=== PATIENT | female | born 1935 | race Caucasian/White ===

== ENCOUNTER 2018-06-01 06:45 | Inpatient (IN) | payer OTHER ==
[2018-06-01 07:22] VITALS: TEMP 98; BMI 28.3
--- NOTE | 2018-06-01 07:46 | PDOC ---
History of Present Illness <Michael Kumari - Last Filed: 06/01/18 16:45> - General History Source: Patient Exam Limitations: No Limitations - History of Present Illness Initial Comments: 06/01/18 07:44 83y F hx of arhtritis, bladder ca, macular degneration, depression, presents with nausea/back pain/chest pain/left arm pain. Pt was at a diner on monday when she started feeling diffuse back pain, associated n/v, diarrhea that resovled after a day. The back pain typically is intermittent, stabbing in nature lasting for approx 10 seconds at the worse before gradually resolving. Usually comes ta night. pt also endores some pain to her L chest under her breast and some palptatations. pt notes these symptoms are not exertional. not associated with food intake (though she has had decreased appetitie recently). no associated fver/chlls, cough, hemoptysis, leg swelling, claf pain, numbness/ tingling or weakness. no recent trauma/falls/injuries. PMD: Dr. Vera <Ever Patel - Last Filed: 06/02/18 15:12> - General Chief Complaint: Pain, Acute Stated Complaint: BACK/LT SHOULDER PAIN Time Seen by Provider: 06/01/18 07:22 Past History <Michael Kumari - Last Filed: 06/01/18 16:45> - Past Medical History Anemia: No Asthma: No Cancer: Yes (UPPER LIP; BLADDER CA 2011) Cardiac Disorders: No CVA: No COPD: No CHF: No Dementia: No Diabetes: No GI Disorders: No Disorders: No HTN: Yes Hypercholesterolemia: No Liver Disease: No Seizures: No Thyroid Disease: No - Surgical History Orthopedic Surgery: Yes (LEFT WRIST;LEFT ELBOW; ARTHRO L KNEE;TKR - LEFT) - Immunization History Immunization Up to Date: Yes - Suicide/Smoking/Psychosocial Hx Smoking Status: Yes Smoking History: Never smoked Have you smoked in the past 12 months: No Number of Cigarettes Smoked Daily: 24 Information on smoking cessation initiated: No Hx Alcohol Use: No Drug/Substance Use Hx: No Substance Use Type: None Hx Substance Use Treatment: No <Ever Patel - Last Filed: 06/02/18 15:12> - Past Medical History Allergies/Adverse Reactions: Allergies Allergy/AdvReac Type Severity Reaction Status Date / Time No Known Drug Allergies Allergy Verified 04/14/15 12:58 Home Medications: Ambulatory Orders Sertraline HCl [Zoloft -] 25 mg PO DAILY 10/01/13 Calcium Carbonate/Vitamin D3 [Calcium 600-Vit D3 200 Tablet] 1 each PO BID #0 tablet 10/02/13 Enalapril Maleate [Vasotec -] 20 mg PO DAILY 10/15/14 Aspirin [ASA -] 81 mg PO DAILY 02/01/15 Ciprofloxacin [Cipro (Restricted To Id)] 500 mg PO Q12H 04/14/15 Review of Systems - Review of Systems Able to Perform ROS?: Yes Comments:: 06/01/18 09:04 Constitutional - no reported Fever, Chills, HEENT: no reported vision changes, sore throat Respiratory: no reported cough, sob, hemoptysis Cardiac: +chest pain, palpitations, no reported light headedness, leg swelling Abd/GI: no reported abd pain, nausea, vomiting, blood per rectum, melena, diarrhea : no reported dysuria, frequency, discharge Musculskelatal - +back pain, no reported joint swelling skin - no reported bruising, erythema, rash neurological: no reported headache, numbness, focal weakness, tingling, ataxia, hematologic: no reported easy bruising, easy bleeding <Ever Patel - Last Filed: 06/02/18 15:12> *Physical Exam - Vital Signs Last Vital Signs Temp Pulse Resp BP Pulse Ox 98.0 F 78 16 115/79 97 06/01/18 07:00 06/01/18 07:00 06/01/18 07:00 06/01/18 07:00 06/01/18 08:30 <Michael Kumari - Last Filed: 06/01/18 16:45> - Vital Signs Last Vital Signs Temp Pulse Resp BP Pulse Ox 98.0 F 78 16 115/79 100 06/01/18 07:00 06/01/18 07:00 06/01/18 07:00 06/01/18 07:00 06/01/18 07:00 - Physical Exam Comments: 06/01/18 09:05 GENERAL: The patient is awake, alert, and fully oriented, Nontoxic - in no acute distress. HEAD: Normocephalic, atraumatic. EYES: extraocular movements intact, sclera anicteric, conjunctiva clear. ENT: Normal voice, Moist mucous membranes. NECK: Normal range of motion, supple LUNGS: Breath sounds equal, clear to auscultation bilaterally. No wheezes, no rhonchi, no rales. HEART: Regular rate and rhythm, normal S1 and S2 without murmur, rub or gallop. ABDOMEN: Soft, nontender, No guarding, no rebound. . No CVA tenderness EXTREMITIES: Normal range of motion, no edema. Neg homans sign, no calf tenderness NEUROLOGICAL: No facial assymetry, Normal speech, PSYCH: Normal mood, normal affect. SKIN: Warm, Dry, normal turgor, <Ever Patel - Last Filed: 06/02/18 15:12> Moderate Sedation - Procedure Monitoring Vital Signs: Procedure Monitoring Vital Signs Temperature 98.0 F 06/01/18 07:00 Pulse Rate 78 06/01/18 07:00 Respiratory Rate 16 06/01/18 07:00 Blood Pressure 115/79 06/01/18 07:00 O2 Sat by Pulse Oximetry (%) 97 06/01/18 08:30 <Michael Kumari - Last Filed: 06/01/18 16:45> - Procedure Monitoring Vital Signs: Procedure Monitoring Vital Signs Temperature 98.0 F 06/01/18 07:00 Pulse Rate 78 06/01/18 07:00 Respiratory Rate 16 06/01/18 07:00 Blood Pressure 115/79 06/01/18 07:00 O2 Sat by Pulse Oximetry (%) 100 06/01/18 07:00 <Ever Patel - Last Filed: 06/02/18 15:12> Heart Score/ECG Review - ECG Impressions Comment:: 06/01/18 09:05 Twelve-lead EKG was performed and reviewed by me. Rate of 143 Abnormal R wave progression No ST changes suggestive of acute ischemia Impression: SVT Repeat EKG performed at 9:01 There is normal sinus rhythm rate of 101 Abnormal R wave progression Impression: sinus tachycardia <Ever Patel - Last Filed: 06/02/18 15:12> ED Treatment Course - LABORATORY CBC & Chemistry Diagram: 06/01/18 08:45 06/01/18 08:45 - ADDITIONAL ORDERS Additional order review: Laboratory Results 06/01/18 06/01/18 08:45 08:45 Sodium 135 L Potassium 4.8 Chloride 97 L Carbon Dioxide 27 Anion Gap 11 BUN 23 H Creatinine 0.6 Creat Clearance w eGFR > 60 Random Glucose 110 H Calcium 9.5 Total Bilirubin 0.7 AST 14 L ALT 36 Alkaline Phosphatase 108 Creatine Kinase 34 Troponin I < 0.02 Total Protein 7.0 Albumin 3.7 Lipase 103 06/01/18 08:45 RBC 5.35 H MCV 81.1 MCHC 31.7 L RDW 15.7 H MPV 9.2 Neutrophils % 84.8 H Lymphocytes % 6.9 L D Monocytes % 7.8 Eosinophils % 0.2 D Basophils % 0.3 - Medications Given in the ED: ED Medications Discontinued Medications Generic Name Dose Route Start Last Admin Trade Name Freq PRN Reason Stop Dose Admin Azithromycin 500 mg/ Dextrose 250 mls @ 250 mls/hr 06/01/18 10:15 06/01/18 12 :12 IVPB 06/01/18 11:14 250 mls/hr ONCE ONE Administration Ceftriaxone Sodium 1 gm/ 50 mls @ 100 mls/hr 06/01/18 11:30 06/01/18 11:53 Dextrose IVPB 06/01/18 11:59 100 mls/hr ONCE ONE Administration Ibuprofen 400 mg 06/01/18 13:05 06/01/18 13:19 Motrin - PO 06/01/18 13:06 400 mg ONCE ONE Administration <Michael Kumari - Last Filed: 06/01/18 16:45> - LABORATORY CBC & Chemistry Diagram: 06/01/18 08:45 06/01/18 08:45 <Ever Patel - Last Filed: 06/02/18 15:12> Medical Decision Making - Medical Decision Making 3:40pm Call placed to [facility] transfer center, case was discussed with Dr. Blanca, cardiothoracic surgeon. 16:34 Call placed to [facility] for ETA and update, made aware patient will be going to ER. 16:45 Call from [facility] transfer center made aware ETA is 5:45pm. <Michael Kumari - Last Filed: 06/01/18 16:45> - Critical Care Time Total Critical Care Time (minutes): 35 Critical Care Statement: The care of this patient involved high complexity decision making to prevent further life threatening deterioration of the patient 's condition and/or to evaluate & treat vital organ system(s) failure or risk of failure. - Medical Decision Making 06/01/18 08:51 ddx for her symptoms inclues but not limited to acs, consider dissectoin/PE however unlikely as sypmtoms intermittent lasting approx 10 sec at a time and with normal bp and symmetric radial pulses, possibly arrythemia, pancreatitis, anemia, metabolic deragnement will ck cxr, ekg, labs, ua 06/01/18 09:03 original ekg noted for SVT with rate of 143 pt was placed on a monitor and svt spontaneously resolved repeat ekg owtih HR of 101 06/01/18 10:15 LABS NOTED FOR MILd leukocytosis w/ left shift cxr noted for L sided atelextasis/effusion, pna vs atelectasis román lobtain CT chest to further evlauate will write abx case dw dr. jass blue with admission for further management Stable for telemetry admission Case discussed in detail with admitting physician including history, physical exam and ancillary studies. Admitting physician has assumed care for the patient, will follow all pending diagnostics and will complete the evaluation and treatment. 06/01/18 15:16 ct chest noted for aortic dissection will notify dr. vera and dr. carmen tabares 06/01/18 16:51 repeat bp 192/124 - increased esmolol to 150mcg, 06/02/18 15:12 <Ever Patel - Last Filed: 06/02/18 15:12> *DC/Admit/Observation/Transfer - Attestations Scribe Attestion: 06/01/18 16:35 Documentation prepared by Michael Kumari, acting as medical planner for Ever Patel MD. <Michael Kumari - Last Filed: 06/01/18 16:45> - Discharge Dispostion Decision to Admit order: Yes <Ever Patel - Last Filed: 06/02/18 15:12> Diagnosis at time of Disposition: SVT (supraventricular tachycardia) Chest pain Qualifiers: Chest pain type: chest pain on breathing Qualified Code(s): R07.1 - Chest pain on breathing Pneumonia Qualifiers: Pneumonia type: due to unspecified organism Laterality: left Lung location: unspecified part of lung Qualified Code(s): J18.9 - Pneumonia, unspecified organism Aortic dissection Qualifiers: Aortic location: thoracic aorta Qualified Code(s): I71.01 - Dissection of thoracic aorta - Discharge Dispostion Disposition: TRANSFER ACUTE CARE/OTHER HOSP Condition at time of disposition: Critical
[2018-06-01 09:38] LABS: BASO % 0.3 % (0-2.0); EOS % 0.2 % (0-4.5); HEMATOCRIT 43.4 % (32.4-45.2); HEMOGLOBIN 13.8 GM/dL (10.7-15.3); LYMPH % 6.9 % (8-40); MCH 25.7 pg (25.7-33.7); MCHC 31.7 g/dl (32.0-36.0); MEAN CELL VOLUME 81.1 fl (80-96); MEAN PLT VOLUME 9.2 fl (7.5-11.1); MONO % 7.8 % (3.8-10.2); NEUT % 84.8 % (42.8-82.8); PLATELET COUNT 335 K/MM3 (134-434); RBC 5.35 M/mm3 (3.60-5.2); RDW 15.7 % (11.6-15.6); WHITE BLOOD COUNT 12.4 K/mm3 (4.0-10.0)
[2018-06-01 10:05] LABS: ALBUMIN 3.7 g/dl (3.4-5.0); ALK PHOS 108 U/L (45-117); ANION GAP 11 MMOL/L (8-16); BILIRUBIN,TOTAL 0.7 mg/dL (0.2-1); BLOOD UREA NITROGEN 23 mg/dL (7-18); CALCIUM 9.5 mg/dL (8.5-10.1); CHLORIDE 97 mmol/L (98-107); CO2 27 mmol/L (21-32); CREATININE 0.6 mg/dL (0.55-1.3); GLUCOSE,RANDOM 110 mg/dL (74-106); POTASSIUM 4.8 mmol/L (3.5-5.1); SGOT/AST 14 U/L (15-37); SGPT/ALT 36 U/L (13-61); SODIUM 135 mmol/L (136-145)
[2018-06-01] MEDS ORDERED: AZITHROMYCIN IVPB 500 MG in DEXTROSE 5%-WATER - 250 ML IVPB ONE (10:15)
[2018-06-01] MEDS ORDERED: CEFTRIAXONE 1 GM in DEXTROSE 5%-WATER - 50 ML IVPB ONE ×2 (10:15→11:30)
--- NOTE | 2018-06-01 10:47 | HP ---
Admitting History and Physical - Primary Care Physician PCP: Shyann Vera S - Admission Chief Complaint: back and chest pain History of Present Illness: 83y F hx of arhtritis, bladder ca, macular degneration, depression, presents with nausea/back pain/chest pain/left arm pain. Pt was at a diner on monday when she started feeling diffuse back pain, associated n/v, diarrhea that resolved after a day. The back pain typically is intermittent, stabbing in nature lasting for approx 10 seconds at the worse before gradually resolving. Usually comes at night. pt also c/o some pain to her L chest under her breast and some palpitations. pt notes these symptoms are not exertional. not associated with food intake (though she has had decreased appetite recently). no associated fever/chills, cough, hemoptysis, leg swelling, claf pain, numbness /tingling or weakness. no recent trauma/falls/injuries. History Source: Patient Limitations to Obtaining History: No Limitations - Past Medical History Cardiovascular: Yes: CAD, HTN, Hyperlipdemia Renal/: Yes: Cancer Musculoskeletal: Yes: Osteoarthritis - Smoking History Smoking history: Never smoked Have you smoked in the past 12 months: No Aproximately how many cigarettes per day: 24 - Alcohol/Substance Use Hx Alcohol Use: No History of Substance Use: reports: None - Social History Usual Living Arrangement: Yes: Alone ADL: Independent History of Recent Travel: No Home Medications - Allergies Allergies/Adverse Reactions: Allergies Allergy/AdvReac Type Severity Reaction Status Date / Time No Known Drug Allergies Allergy Verified 04/14/15 12:58 - Home Medications Home Medications: Ambulatory Orders Sertraline HCl [Zoloft -] 25 mg PO DAILY 10/01/13 Calcium Carbonate/Vitamin D3 [Calcium 600-Vit D3 200 Tablet] 1 each PO BID #0 tablet 10/02/13 Enalapril Maleate [Vasotec -] 20 mg PO DAILY 10/15/14 Aspirin [ASA -] 81 mg PO DAILY 02/01/15 Ciprofloxacin [Cipro (Restricted To Id)] 500 mg PO Q12H 04/14/15 Family Disease History - Family Disease History Family History: Unremarkable Review of Systems - Review of Systems Constitutional: denies: Chills, Fever Eyes: denies: Blind Spots, Blurred Vision HENT: denies: Difficult Swallowing, Epistaxis Neck: denies: Stiffness, Tenderness Cardiovascular: reports: Chest Pain, Palpitations. denies: Shortness of Breath Respiratory: denies: Cough, SOB Gastrointestinal: denies: Abdominal Pain, Constipation, Diarrhea, Vomiting Genitourinary: denies: Dysuria, Flank Pain Musculoskeletal: reports: Joint Pain (shoulders). denies: Back Pain, Joint Swelling Neurological: denies: Change in LOC, Change in Speech, Confusion, Dizziness Hematology/Lymphatic: denies: Easily Bruised, Excessive Bleeding, Swollen Glands Psychiatric: denies: Altered Sleep Pattern, Anxiety, Depression Physical Examination Vital Signs: Vital Signs Temperature 98.0 F 06/01/18 07:00 Pulse Rate 78 06/01/18 07:00 Respiratory Rate 16 06/01/18 07:00 Blood Pressure 115/79 06/01/18 07:00 O2 Sat by Pulse Oximetry (%) 100 06/01/18 07:00 Constitutional: Yes: No Distress, Calm Eyes: Yes: Conjunctiva Clear HENT: Yes: Atraumatic Neck: Yes: Supple Cardiovascular: Yes: Regular Rate and Rhythm Respiratory: Yes: CTA Bilaterally Gastrointestinal: Yes: Soft. No: Distention Renal/: No: CVA Tenderness - Left, CVA Tenderness - Right, Hematuria Musculoskeletal: No: Joint Stiffness, Joint Swelling Extremities: No: Cold, Cool, Cyanosis Edema: No Integumentary: No: Rash, Venous Stasis Changes Neurological: Yes: WNL, Alert, Oriented ...Motor Strength: WNL Psychiatric: Yes: WNL, Alert, Oriented. No: Agitated, Suicidal Ideation Labs: CBC, BMP 06/01/18 08:45 06/01/18 08:45 Imaging - Results Chest X-ray: Report Reviewed EKG: Report Reviewed Other: Report Reviewed Assessment/Plan 83y F hx of arhtritis, bladder ca, macular degneration, depression, presents with nausea, vomiting/back pain/chest pain/left arm pain. EKG in ER c/w SVT; labs noted; CXR possible L sided infiltrates ?PNA?d/w ER dr PATRICK in ER admit to telemetry cardiology eval, CE x [address] in ER further /u per cardio IV antibiotics for possible PNA f/u labs d/w pt and staff
[2018-06-01] MEDS ORDERED: CEFTRIAXONE 1 GM/50 ML BAG ONE (11:28)
--- NOTE | 2018-06-01 11:45 | EKG ---
Test Reason : Blood Pressure : / mmHG Vent. Rate : 143 BPM Atrial Rate : 079 BPM P-R Int : 000 ms QRS Dur : 082 ms QT Int : 320 ms P-R-T Axes : 000 -02 024 degrees QTc Int : 493 ms SUPRAVENTRICULAR TACHYCARDIA MODERATE VOLTAGE CRITERIA FOR LVH, MAY BE NORMAL VARIANT CANNOT RULE OUT SEPTAL INFARCT (CITED ON OR BEFORE 01-OCT-2013) ABNORMAL ECG WHEN COMPARED WITH ECG OF 01-FEB-2015 00:34, VENT. RATE HAS INCREASED BY 59 BPM Confirmed by CHRISTINA MORIN, AZEEM ([id number]) on 06/01/2018 11:45:31 AM Referred By: Confirmed By:AZEEM VASQUEZ MD
[2018-06-01] MEDS ORDERED: AZITHROMYCIN IVPB 500 MG/250 ML BAG IVPB ONE (11:59)
[2018-06-01] MEDS ORDERED: IBUPROFEN 400 MG TABLET (FP) PO ONE ×2 (13:05→13:16)
--- NOTE | 2018-06-01 13:16 | CON.CARD ---
Consult Consult Specialty:: Cardiology Referred by:: Shyann Vera Reason for Consultation:: PSVT - History of Present Illness Chief Complaint: Acute on chronic back pain History of Present Illness: 83 yo female h/o hypertensive heart disease, CAD, hyperlipidemia, DJD presents for acute on chronic back pain, ambulates with cane assistance. She was noted to be in SVT 143 with spontaneous conversion to NSR, she reports periodic palpitations, but denies chest pain, dyspnea, near or true syncope, orthopnea, PND or LE edema. - History Source History Provided By: Patient Limitations to Obtaining History: No Limitations - Past Medical History Cardio/Vascular: Yes: CAD, HTN, Hyperlipdemia Renal/: Yes: Cancer Musculoskeletal: Yes: Osteoarthritis - Alcohol/Substance Use Hx Alcohol Use: No History of Substance Use: reports: None - Smoking History Smoking history: Never smoked Have you smoked in the past 12 months: No Aproximately how many cigarettes per day: 24 - Social History ADL: Independent History of Recent Travel: No Home Medications - Allergies Allergies/Adverse Reactions: Allergies Allergy/AdvReac Type Severity Reaction Status Date / Time No Known Drug Allergies Allergy Verified 04/14/15 12:58 - Home Medications Home Medications: Ambulatory Orders Sertraline HCl [Zoloft -] 25 mg PO DAILY 10/01/13 Calcium Carbonate/Vitamin D3 [Calcium 600-Vit D3 200 Tablet] 1 each PO BID #0 tablet 10/02/13 Enalapril Maleate [Vasotec -] 20 mg PO DAILY 10/15/14 Aspirin [ASA -] 81 mg PO DAILY 02/01/15 Ciprofloxacin [Cipro (Restricted To Id)] 500 mg PO Q12H 04/14/15 Review of Systems - Review of Systems Musculoskeletal: reports: Back Pain Vital Signs: Vital Signs Temperature 98.0 F 06/01/18 07:00 Pulse Rate 78 06/01/18 07:00 Respiratory Rate 16 06/01/18 07:00 Blood Pressure 115/79 06/01/18 07:00 O2 Sat by Pulse Oximetry (%) 97 06/01/18 08:30 Constitutional: Yes: No Distress, Calm Neck: Yes: Supple Respiratory: Yes: Regular, CTA Bilaterally Gastrointestinal: Yes: Normal Bowel Sounds, Soft Cardiovascular: Yes: Regular Rate and Rhythm JVD: No Carotid Bruit: No Heart Sounds: Yes: S1, S2 Murmur: Yes: Systolic Murmur, Grade 1 Edema: No - Other Data Labs, Other Data: CBC, BMP 06/01/18 08:45 06/01/18 08:45 Troponin, BNP 06/01/18 08:45 Troponin I < 0.02 Troponin, BNP 06/01/18 08:45 Troponin I < 0.02 SVT !43->NSR 101 LVH Imaging - Results Chest X-ray: Report Reviewed (Left base ATX) Problem List - Problems (1) Hypertensive heart disease Code(s): I11.9 - HYPERTENSIVE HEART DISEASE WITHOUT HEART FAILURE Qualifiers: Heart failure presence: without heart failure Qualified Code(s): I11.9 - Hypertensive heart disease without heart failure (2) SVT (supraventricular tachycardia) Code(s): I47.1 - SUPRAVENTRICULAR TACHYCARDIA (3) Back pain Code(s): M54.9 - DORSALGIA, UNSPECIFIED Qualifiers: Back pain location: back pain in unspecified location Chronicity: unspecified (4) Coronary artery disease Code(s): I25.10 - ATHSCL HEART DISEASE OF [place] CORONARY ARTERY W/O ANG PCTRS Qualifiers: Coronary Disease-Associated Artery/Lesion type: [place] artery [place] vs. transplanted heart: [place] heart Associated angina: without angina Qualified Code(s): I25.10 - Atherosclerotic heart disease of [place] coronary artery without angina pectoris Assessment/Plan 1. PSVT->NSR 2. Hypertensive heart disease 3. CAD 4. Hyperlipidemia 5. Acute on chronic back pain P:1. F/u chest ct, echo, TSH, lipid panel 2. Add Toprol XL 12.5 qd with uptitration as tolerated, continue ASA 81 qd, Vasotec 20 qd 3. Consider EPS, RFA although patient unlikely to be interested given minimal sxs 4. Spine MRI, analgesia as needed 5. Thank you for consultative opportunity
[2018-06-01 13:32] LABS: URINE APPEARANCE SLCLOUDY; URINE BILIRUBIN NEGATIVE (<2.0 mg/dL); URINE COLOR DKYELLOW; URINE GLUCOSE (UA) NEGATIVE (NEGATIVE); URINE KETONE NEGATIVE (NEGATIVE); URINE LEUK ESTERASE TRACE (NEGATIVE); URINE NITRITE NEGATIVE (NEGATIVE); URINE PROTEIN 1+ (NEGATIVE)
[2018-06-01] MEDS ORDERED: metoPROLOL SUCCINATE 25 MG TAB.SR.24H (FP) PO SCH (13:45)
--- NOTE | 2018-06-01 15:04 | ECHO ---
Name: BRANDON HILTON Exam:Adult Echocardiogram Study Date: 06/01/2018 01:51 PM Age: 83 yrs Reason For Study: PSVT Height: 63 in Weight: 160 lb BSA: 1.8 m2 MMode/2D Measurements & Calculations IVSd: 0.86 cm Ao root diam: 2.8 cm LVIDd: 5.1 cm LA dimension: 3.3 cm LVIDs: 3.7 cm LVPWd: 0.86 cm EDV(Teich): 124.8 ml TAPSE: 3.2 cm ESV(Teich): 59.7 ml Doppler Measurements & Calculations MV E max warren: 32.6 cm/sec Ao V2 max: 137.7 cm/sec MV A max warren: 82.9 cm/sec Ao max P.6 mmHg MV E/A: 0.39 AI P1/2t: 796.0 msec AI max warren: 392.4 cm/sec LV V1 max P.1 mmHg AI max P.4 mmHg LV V1 max: 52.1 cm/sec AI dec slope: 144.4 cm/sec2 TR max warren: 280.1 cm/sec Med Peak E' [place]: 8.1 cm/sec TR max P.4 mmHg Med E/e': 4.0 Lat Peak E' [place]: 15.2 cm/sec Lat E/e': 2.2 Left Ventricle Left ventricular systolic function is moderate to severely reduced. Right Ventricle The right ventricle is grossly normal size. The right ventricular systolic function is grossly normal . Atria Normal left and right atrial size and function. Mitral Valve The mitral valve is normal in structure and function. There is no mitral valve stenosis. There is tra ce to mild mitral regurgitation. Tricuspid Valve The tricuspid valve is normal in structure and function. There is mild tricuspid regurgitation. Right ventricular systolic pressure is elevated at 30-40mmHg. Aortic Valve The aortic valve opens well. No hemodynamically significant valvular aortic stenosis. Moderate aortic regurgitation. Pulmonic Valve The pulmonic valve is not well seen, but is grossly normal. There is no pulmonic valvular stenosis. Great Vessels The aortic root is normal size. Pericardium/Pleura Trivial pericardial effusion not hemodynamically significant. Interpretation Summary There is mild tricuspid regurgitation. Right ventricular systolic pressure is elevated at 30-40mmHg. Moderate aortic regurgitation. Trivial pericardial effusion not hemodynamically significant Left ventricular systolic function is moderate to severely reduced. MD Dalton *Eliana 06/01/2018 03:03 PM
[2018-06-01 15:22] LABS: EPI CELLS MANY /HPF (FEW); URINE HYALINE CAST 3 /lpf; URINE MUCUS FEW
[2018-06-01] MEDS ORDERED: morphine CARPU-JECT 2 MG/1 ML DISP.SYRIN IVPUSH ONE (15:30)
[2018-06-01] MEDS ORDERED: ESMOLOL 2500 MG/250 ML 2,500,000 MCG/250 ML INFUS.BAG IVPB SCH (15:30)
[2018-06-01] MEDS ORDERED: ESMOLOL 2500 MG/250 ML 2,500,000 MCG/250 ML INFUS.BAG IVPB ONE (15:42)
[2018-06-01] MEDS ORDERED: MORPHINE SULFATE 2 MG/ML VIAL ONE (15:43)
--- NOTE | 2018-06-01 16:04 | PDOC ---
ED Treatment Course - LABORATORY CBC & Chemistry Diagram: 06/01/18 08:45 06/01/18 08:45 - ADDITIONAL ORDERS Additional order review: Laboratory Results 06/01/18 06/01/18 08:45 08:45 Sodium 135 L Potassium 4.8 Chloride 97 L Carbon Dioxide 27 Anion Gap 11 BUN 23 H Creatinine 0.6 Creat Clearance w eGFR > 60 Random Glucose 110 H Calcium 9.5 Total Bilirubin 0.7 AST 14 L ALT 36 Alkaline Phosphatase 108 Creatine Kinase 34 Troponin I < 0.02 Total Protein 7.0 Albumin 3.7 Lipase 103 06/01/18 08:45 RBC 5.35 H MCV 81.1 MCHC 31.7 L RDW 15.7 H MPV 9.2 Neutrophils % 84.8 H Lymphocytes % 6.9 L D Monocytes % 7.8 Eosinophils % 0.2 D Basophils % 0.3 - RADIOLOGY Radiology Studies Ordered: Category Date Time Status CHEST CT WITHOUT CONTRAST [CT] Stat CT Scan 06/01/18 14:25 Completed CHEST PA & LAT [RAD] Stat Radiology 06/01/18 07:52 Completed - Medications Given in the ED: ED Medications Discontinued Medications Generic Name Dose Route Start Last Admin Trade Name Freq PRN Reason Stop Dose Admin Azithromycin 500 mg/ Dextrose 250 mls @ 250 mls/hr 06/01/18 10:15 06/01/18 12 :12 IVPB 06/01/18 11:14 250 mls/hr ONCE ONE Administration Ceftriaxone Sodium 1 gm/ 50 mls @ 100 mls/hr 06/01/18 11:30 06/01/18 11:53 Dextrose IVPB 06/01/18 11:59 100 mls/hr ONCE ONE Administration Ibuprofen 400 mg 06/01/18 13:05 06/01/18 13:19 Motrin - PO 06/01/18 13:06 400 mg ONCE ONE Administration Medical Decision Making - Medical Decision Making 06/01/18 16:02 Drew Blanca - [facility] Cardiothereacic surgery agree with decision to transfer and acepted to [facility] for further mangament dissection appears to involves arch, ascending arch and descending aorta will start esmolol, SBP goal of 120 The patient was seen and examined to determine medical stability. The patient is MEDICALLY STABLE at this time. Labs, EKG, radiological studies were ordered to expedite the patient's care. I certify that I have discussed with the patient and/or his patient services representative the following risks and benefits of the proposed transfer. Risks include worsening of patients condition during transport,auto accident, or permanent disability. Benefits include receiving specialized care not available at this facility. I certify that, based on the information available at this time, the medical benefits reasonably expected from the provision of appropriate medical treatment at the receiving facility outweigh the increased risk to the patient. I believe the patient/relative/guardian understands what I have explained and answered. The patient will be transferred to the service of Dr. Blanca at [facility] *DC/Admit/Observation/Transfer Diagnosis at time of Disposition: SVT (supraventricular tachycardia) Chest pain Qualifiers: Chest pain type: chest pain on breathing Qualified Code(s): R07.1 - Chest pain on breathing Pneumonia Qualifiers: Pneumonia type: due to unspecified organism Laterality: left Lung location: unspecified part of lung Qualified Code(s): J18.9 - Pneumonia, unspecified organism Aortic dissection Qualifiers: Aortic location: thoracic aorta Qualified Code(s): I71.01 - Dissection of thoracic aorta - Discharge Dispostion Disposition: TRANSFER ACUTE CARE/OTHER HOSP Condition at time of disposition: Critical Decision to Admit order: No - Referrals - Patient Instructions - Post Discharge Activity - Transfer to Acute Care Facility Receiving Facility: [facility]. Accepting Physician:: Dr. Blanca
[2018-06-01] MEDS ORDERED: morphine CARPU-JECT 4 MG/1 ML DISP.SYRIN IVPUSH ONE (16:57)
[2018-06-01] MEDS ORDERED: morphine SULFATE 4 MG/ML VIAL ONE (17:35)
[2018-06-01 17:53] VITALS: BP 159/97; PULSE 92
--- NOTE | 2018-06-01 19:01 | EKG ---
Test Reason : Blood Pressure : / mmHG Vent. Rate : 101 BPM Atrial Rate : 101 BPM P-R Int : 146 ms QRS Dur : 080 ms QT Int : 324 ms P-R-T Axes : 026 000 032 degrees QTc Int : 420 ms SINUS TACHYCARDIA WITH PREMATURE ATRIAL COMPLEXES VOLTAGE CRITERIA FOR LEFT VENTRICULAR HYPERTROPHY CANNOT RULE OUT SEPTAL INFARCT (CITED ON OR BEFORE 01-OCT-2013) ABNORMAL ECG WHEN COMPARED WITH ECG OF 01-JUN-2018 08:28, PREMATURE ATRIAL COMPLEXES ARE NOW PRESENT Confirmed by AZEEM VASQUEZ MD ([id number]) on 06/01/2018 7:01:19 PM Referred By: Confirmed By:AZEEM VASQUEZ MD
--- NOTE | 2018-06-01 19:24 | DS ---
Physical Examination Vital Signs: Vital Signs Temperature 98.0 F 06/01/18 07:00 Pulse Rate 92 H 06/01/18 17:49 Respiratory Rate 26 H 06/01/18 17:49 Blood Pressure 159/97 06/01/18 17:49 O2 Sat by Pulse Oximetry (%) 97 06/01/18 16:00 Findings/Remarks: d/w ER dr PATRICK - pt had chest CT in ER c/w acute aortic dissection - services NA in [facility], pt was transferred emergently to [facility] for CT surgery eval. Labs: CBC, BMP 06/01/18 08:45 06/01/18 08:45 Discharge Summary Reason For Visit: SUPRAVENTRICULAR TACHYCARDIA/PNEUMONIA Condition: Critical - Instructions Referrals: Shyann Vera [Primary Care Provider] - Disposition: TRANSFER ACUTE CARE/OTHER HOSP - Home Medications Comprehensive Discharge Medication List: Ambulatory Orders Sertraline HCl [Zoloft -] 25 mg PO DAILY 10/01/13 Calcium Carbonate/Vitamin D3 [Calcium 600-Vit D3 200 Tablet] 1 each PO BID #0 tablet 10/02/13 Enalapril Maleate [Vasotec -] 20 mg PO DAILY 10/15/14 Aspirin [ASA -] 81 mg PO DAILY 02/01/15 Ciprofloxacin [Cipro (Restricted To Id)] 500 mg PO Q12H 04/14/15
[2018-06-01] MEDS ORDERED: HEPARIN NA (PORCINE) 5,000 UNITS/ML 1ML VIAL SQ SCH (22:00)
[2018-06-01] MEDS ORDERED: CALCIUM 500MG/VIT-D 200 UNITS COMBO TABLET (FP) PO SCH (22:00)
[2018-06-02] MEDS ORDERED: ASPIRIN 81 MG CHEWABLE TABLETS PO SCH (10:00)
[2018-06-02] MEDS ORDERED: AZITHROMYCIN IVPB 500 MG/250 ML BAG IVPB SCH (10:00)
[2018-06-02] MEDS ORDERED: ENALAPRIL MALEATE 10 MG TABLET (FP) PO SCH (10:00)
[2018-06-02] MEDS ORDERED: SERTRALINE HCL 25 MG TABLET (FP) PO SCH (10:00)
== END 2018-06-01 17:40 | disposition short-term general hospital (02) | DRG 300 ==
LOC: JER 06:45 → JERBED 10:18
PROVIDERS: ADMIT Internal Medicine; ATTEND Internal Medicine
DX: I71.01 Dissection of thoracic aorta (principal); I47.1 Supraventricular tachycardia; J98.11 Atelectasis; I11.9 Hypertensive heart disease without heart failure; R07.1 Chest pain on breathing; I25.10 Atherosclerotic heart disease of native coronary artery without angina pectoris; M25.512 Pain in left shoulder; Z85.51 Personal history of malignant neoplasm of bladder; F32.9 Major depressive disorder, single episode, unspecified; E78.5 Hyperlipidemia, unspecified; Z87.2 Personal history of diseases of the skin and subcutaneous tissue; M54.5 Low back pain
CPT/HCPCS: 36415; 71046-TC-FY; 71250-TC; 80053; 81003; 81015; 82550; 83690; 84484; 85025; 93005; 93010; 93306-TC; 99283-25